=== PATIENT | female | born 1940 | race Caucasian/White ===

== ENCOUNTER → 2017-03-27 | Outpatient (CLI) | payer MEDICARE ==
[~2017-03-27] MED LIST: PEPT525S OR; PROBCAP14 PO; TURM450C PO; [UNRECOGNIZED DRUG - OTHER] PO; [UNRECOGNIZED DRUG - OTHER] PO; [UNRECOGNIZED DRUG - OTHER] PO; [UNRECOGNIZED DRUG - OTHER] PO
--- NOTE | 2017-03-27 15:15 | REP ---
Chest two views HISTORY: Leukemia Comparison: 07/24/2014 A large right pleural effusion is present. Underlying atelectasis or infiltrate cannot be excluded. The left lung is clear. The heart is normal in size. The pulmonary vasculature is normal in appearance. The bony structure is intact. IMPRESSION: Large right pleural effusion. Underlying atelectasis or infiltrate cannot be excluded. Signed by Tim Calix MD 03/27/2017 03:06 P
== END ==
LOC: M LRY 14:45
PROVIDERS: ATTEND Nurse Practitioner Family
DX: C91.10 Chronic lymphocytic leukemia of B-cell type not having achieved remission (principal); J90 Pleural effusion, not elsewhere classified

== ENCOUNTER 2017-03-28 15:53 | Emergency (ER) | payer MEDICARE ==
[~2017-03-28] VITALS: Ht 167.6 cm; Wt 60.5 kg
[~2017-03-28 15:53] MED LIST changes: -PROBCAP14 PO; -TURM450C PO
[2017-03-28 17:25] LABS: BASO # 0.1 10^3/uL (0.0-0.2); BASO % 1.2 % (0.0-1.0); EOS # 0.2 10^3/uL (0.0-0.50); EOS % 2.3 % (0.0-3.0); IMMATURE GRANULOCYTE % 0.2 % (0-0); LYMPH # 1.1 10^3/uL (1.5-4.5); LYMPH % 17.1 % (24.0-44.0); MEAN CORPUSCULAR HEMOGLOBIN 29.6 pg (27.0-33.0); MEAN CORPUSCULAR HGB CONC 32.5 g/dl (32.0-36.5); MEAN CORPUSCULAR VOLUME 90.9 fl (80.0-96.0); MONO # 0.5 10^3/uL (0.0-0.8); MONO % 8.1 % (0.0-5.0); NEUTROPHILS # 4.7 10^3/uL (1.8-7.7); NEUTROPHILS % 71.1 % (36.0-66.0); PLATELET COUNT, AUTOMATED 307 10^3/uL (150-450); RED CELL DISTRIBUTION WIDTH 11.5 % (11.5-14.5); WHITE BLOOD COUNT 6.7 10^3/uL (4.0-10.0)
[2017-03-28 17:44] LABS: ANION GAP 8 MEQ/L (8-16); BLOOD UREA NITROGEN 8 MG/DL (7-18); CALCIUM LEVEL 9.6 MG/DL (8.8-10.2); CARBON DIOXIDE LEVEL 28 MEQ/L (21-32); CHLORIDE LEVEL 102 MEQ/L (98-107); CREATININE FOR GFR 0.63 MG/DL (0.55-1.02); GLOMERULAR FILTRATION RATE > 60.0 (>39); GLUCOSE, FASTING 101 MG/DL (83-110); POTASSIUM SERUM 4.3 MEQ/L (3.5-5.1); SODIUM LEVEL 138 MEQ/L (136-145)
--- NOTE | 2017-03-28 18:23 | REP ---
CT study of the chest without contrast: History: Pleural effusion. Comparison study March 25, 2016. Comparison is made with chest x-ray from March 27, 2017 showing a large right pleural effusion. CT findings: Noncontrast CT study confirms the presence of a large right pleural effusion. There are somewhat irregular air bronchograms in the right lower lobe with the bronchial narrowing at the bifurcation of the right lower lobe bronchus. No obvious mass effect is seen. This is of uncertain significance. There is also endobronchial narrowing involving the air bronchograms in the right middle lobe where there is some atelectasis medially. There is a 1.5 cm peripheral pleural-based density in the area right upper lobe anteriorly. Also noted in the 0.8 cm right upper lobe nodule and a 0.6 cm nodule. These are posteriorly adjacent to the pleural effusion. There is a 0.4 cm noncalcified nodule in the left upper lobe. In the left apex there is a ground-glass opacity which measures 17 mm in greatest diameter. This it is slightly larger than it was March 25, 2016, 13 mm. Adjacent to this is a stable 3 mm noncalcified nodule. No adrenal lesion is seen. Multiple stable low density cysts are seen in the liver. Gallstones are visible in the dependent portion the gallbladder as before. No bony destructive lesion is appreciated. Impression: New large right pleural effusion. Multiple right lung pulmonary nodules. Some focal bronchial narrowing in the right middle lobe and right lower lobe bronchi question peribronchial mass effect. There are new right upper lobe pulmonary nodules and a new left upper lobe pulmonary nodule is seen. There is also a somewhat suspicious 17 mm ground-glass opacity in the left upper lobe. These findings are suspicious for bronchogenic malignancy. Cholelithiasis is also noted along with small liver cysts. Signed by Jean Carlos Santoyo MD 03/28/2017 07:24 P
--- NOTE | 2017-03-28 19:36 | RO ---
DATE OF PROCEDURE: 03/28/2017 PREPROCEDURE DIAGNOSIS: Right pleural effusion. POSTPROCEDURE DIAGNOSIS: Right pleural effusion. PROCEDURE: Right ultrasound-guided thoracentesis. SURGEON: Dr. Faisal Chairez LOGGING CONTRACTOR: None. ANESTHESIA: 20 mL of subcutaneous lidocaine. CONSENT: Written obtained and placed in the chart. The patient was counseled on the risks and benefits of the procedure. She understood that the risks included bleeding, pneumothorax, cough, chest pressure, infection and increased shortness of breath or increased need for oxygen therapy. DESCRIPTION OF PROCEDURE: After time-out was performed, identifying the patient with correct site, correct procedure, with two patient identifiers, the patient was placed in the sitting position. The right posterior thorax was ultrasounded and the largest fluid collection was marked. This was then prepped and draped with chlorhexidine and a sterile drape. Sterile precautions were used. 1% lidocaine was then introduced subcutaneously down to the level of the pleura with return of yellow fluid. A sandie in the skin was made over this site. The Arrow trocar was then advanced over the rib into the pleural space with return of yellow to orange fluid. The catheter was advanced over the trocar and the trocar was removed. A total of 2060 mL were removed. The procedure was stopped due to patient having chest discomfort. The patient also had some minimal coughing. There was more fluid to be obtained. The catheter was then removed under exhalation. A Band-Aid was placed over the site. There were no observed complications. Postprocedure chest x-ray is pending. Addendum: Post procedure chest x-ray showed improvement in the right pleural effusion with expansion of the lung. MTDD
[2017-03-28 19:40] VITALS: BP 151/76
--- NOTE | 2017-03-28 19:57 | REP ---
Sitting portable chest x-ray: Single view. History: Status post thoracentesis. Comparison study is from the previous day. Findings: The previously noted large right pleural effusion is improved. There is still some atelectasis in the right lower lobe of the lung and blunting of the right lateral pleural angle is seen. Left lung remains clear. Heart size is somewhat enlarged. but unchanged. No pneumothorax is seen. Impression: Improved right pleural effusion. No pneumothorax seen. Signed by Jean Carlos Santoyo MD 03/29/2017 02:11 P
--- NOTE | 2017-03-28 19:59 | ER ---
DATE OF CONSULTATION: 03/28/2017 REQUESTING PROVIDER: Dr. Gambino REASON FOR CONSULTATION: Right pleural effusion. HISTORY OF PRESENT ILLNESS: Lorenza is a 76-year-old female with known advanced [id number] lung cancer. She was told that she had a stage IV disease which she describes as having pleural involvement. She states she was diagnosed June 2016 and was told that she had a year and therefore she decided not to pursue any further oncologic treatment. Prior to this, she was set up for resection. Upon thoracoscopic view there was studding of the pleura and therefore no further surgery was performed. It is not clear if she has any extra pulmonary manifestations of her malignancy other than pleural studding. The patient noticed approximately 03/18/2017, she started developing increasing shortness of breath while she was at work. She has had no chest trauma. She has no history of pulmonary embolism but describes having a right arm thrombus when she had a PICC line and was on anticoagulation at that point in time. This was while she was being treated for chronic lymphocytic leukemia. She has not been on any anticoagulation for years. She has a nonproductive cough. No fever, chills. She has had as 12 pound weight loss since June of this past year. She has no headache, change in vision. No pleurisy. She has orthopnea. No anginal symptoms. No prior history of coronary artery disease. No lower extremity edema, calf pain. She has had decrease in her appetite but no nausea, vomiting or change in bowel habits. No blood in her stool. She has been followed in [place], first initially for CLL and then was diagnosed with a [id number] cancer. I am not sure which type or whether genetic studies have been performed , if it is adenocarcinoma or squamous. I will request records from [place] from Dr. zAar at [facility]. PAST MEDICAL HISTORY: 1. Non-small cell lung cancer, reportedly advanced stage with pleural studding on thoracoscopic view. 2. History of CLL status post chemotherapy. 3. History of tobacco dependence. 4. 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 SOCIAL HISTORY: The patient quit smoking 12 years ago, started smoking at age 14, smoked approximately a pack a day, therefore estimated 50 pack-year history. No other inhalational exposures. No illicit drug use. No alcohol use. She lives alone currently. She works at [employer]. She does not recall no other occupational exposures. No pets, no birds in her home. Family History: she believes that her sister may have had a rare thyroid cancer. Her other sister had lung cancer and was a smoker. Her father had prostate cancer and her mother at age 91 with Alzheimer's disease. REVIEW OF SYSTEMS: CONSTITUTIONAL: Positive weight loss as mentioned above. No fever, chills, night sweats. HEENT: No difficulty swallowing. No change in vision, epistaxis or dental abscess. No history of thrush. CARDIAC: Positive orthopnea. No PND, angina or symptoms of claudication. PULMONARY: No history of tuberculosis or tuberculosis contacts, no history of pleurisy. Otherwise as mentioned in history of present illness (HPI). GASTROINTESTINAL (GI): No nausea, vomiting, diarrhea. She has had decrease in her appetite. No constipation, blood in stool. GENITOURINARY (): No burning or pain with urination. No frequent urination. No hematuria or history of nephrolithiasis. NEUROLOGIC: No unilateral weakness. No history of seizure, stroke or head trauma. PSYCHIATRIC: No depression, anxiety. or suicidal ideation. SLEEP: No history of obstructive sleep apnea, snoring, or witnessed apneas. ALLERGY/IMMUNOLOGY: No history of frequent infections. No history of environmental allergies. MUSCULOSKELETAL: No bony pain. No hip pain. No recent fractures. No joint effusion. SKIN: No rash, jaundice or bruising. No pruritus. PHYSICAL EXAMINATION: Temperature is 98.7, pulse 79, respiratory rate is 16, blood pressure ranged from 143/82 to 170s over high 80s diastolic. Oxygen saturation 94% on room air, 97% on 2 liters. GENERAL: The patient is awake, alert and oriented. Affect and mood are appropriate. Nutrition and hygiene are good. Appears slightly nervous but speech is clear, non-tangential. HEENT: Sclerae clear and anicteric. Pupils equal, react to light. Mucous membranes are moist without lesions. Tongue is midline. Mallampati 1 with dentition in good repair. NECK: Supple. No tracheal deviation, no thyromegaly. LYMPHATICS: No cervical or supraclavicular axillary adenopathy. CARDIAC: Regular S1, S2, without audible murmur, rub or gallop. No elevated JVP. No peripheral edema. Peripheral pulses are palpable at radial locations and symmetric. PULMONARY: Decreased breath sounds on the right base approximately two-thirds of her posterior lung field. This area is dull to percussion. The left lung is clear. Anteriorly lung sounds are clear. There is no prolongation of the expiratory phase. No rhonchi or rales or wheeze. ABDOMEN: Soft, nontender, nondistended. No discernible hepatosplenomegaly. No masses or hernia. EXTREMITIES: No cyanosis, clubbing or edema. SKIN: No rashes, jaundice or bruising. Skin is fairly pale. MUSCULOSKELETAL: Fairly normal muscle tone. No obvious fracture or bony pain. NEUROLOGIC: No unilateral weakness. No tremor. No asterixis. LABORATORY EVALUATION: Shows a sodium of 138, potassium 4.3, chloride 102, bicarbonate 28, BUN of 8, creatinine of 0.63 with a fasting glucose of 101, calcium of 9.6, white blood cell count is 6.7 with a hemoglobin of 13.4, hematocrit of 41.2, platelet count of 307 with a neutrophilia of 71%. Chest CT was reviewed showing a large right pleural effusion. Multiple bilateral pulmonary nodules with what appears to be a large mass in the right lower lobe with consolidated atelectatic right lower lobe. There is a minimal pericardial effusion. Minimal aortic calcifications. The adrenal lesion on the left appears slightly enlarged. There is enlarged pretracheal node and subcarinal node. Liver appears slightly enlarged without lesion. There is some trachealomegaly. No significant parenchymal changes on the left side other than the few scattered nodules predominantly in the left upper lobe. EKG shows sinus rhythm, short IN interval, overall decreased QRS voltage. QTc is 401. No evidence of ST abnormalities. IMPRESSION: 1. Dyspnea from right large pleural effusion with orthopnea. The patient is symptomatic although has a history of extensive malignancy that I do not have detailed records of, I believe thoracentesis would be the most appropriate procedure at this point in time, both for diagnostic purposes but mostly for therapeutic reasons. I will repeat a chest x-ray after thoracentesis to see if the lung re-expands. If the lung does reinflate she could be a candidate for a PleurX catheter. Will follow her as an outpatient for this. If the lung remains trapped, it is unlikely there is much we can do other than symptomatic thoracentesis on a as needed basis. 2. Non-small cell lung cancer. I am unsure of her exact diagnosis and whether or not genetic studies have been performed if she has adenocarcinoma. I will therefore request records to ensure that she is not a candidate for immunotherapy. 3. Hypoxia. Improved with drainage. Would recommend ambulating the patient before discharge from the emergency room. 4. I do not feel that antibiotics are indicated at this point in time. She has no white count, no fever. Would continue to monitor. This is likely a pleural effusion from malignancy. JUNED
[2017-03-28 20:15] LABS: LDH, BODY FLUID 442 U/L (NOT ESTABLISHED); TOTAL PROTEIN, BODY FLUID 5.2 G/DL (NOT ESTABLISHED)
[2017-03-28 20:42] LABS: BF MONONUCLEAR CELL % 92.8 % (0-0); BF POLYMORPHONUCLEAR CELL % 7.2 CELLS/uL (0-0)
[2017-03-28 20:44] LABS: BF DIFF IF INDICATED? YES (NO)
--- NOTE | 2017-03-31 06:06 | ECGEPIP ---
Stationary ECG Study [facility] - ED Test Date: 2017-03-28 Pat Name: DONA MCCLAIN Department: Room: - Gender: F Clinical Services Specialist: SHEFALI : 1940 Requested By: Deb Lopez Order Number: [id number] Reading MD: Herb Walsh Measurements Intervals Earth Rate: 71 P: 41 HI: 111 QRS: 44 QRSD: 83 T: 35 QT: 378 QTc: 413 Interpretive Statements SINUS RHYTHM WITH SHORT HI INTERVAL SIMILAR TO 07/24/14 Electronically Signed On 03-31-2017 6:06:08 EDT by Herb Walsh
[2017-04-18] MEDS ORDERED: TURM450C PO (16:20)
[2017-04-18] MEDS ORDERED: PROBCAP14 PO (16:20)
== END 2017-03-28 19:52 | disposition home or self-care (01) ==
LOC: M ED 15:53
DX: J90 Pleural effusion, not elsewhere classified (principal); C34.00 Malignant neoplasm of unspecified main bronchus; C91.10 Chronic lymphocytic leukemia of B-cell type not having achieved remission; E78.5 Hyperlipidemia, unspecified; F41.9 Anxiety disorder, unspecified; F32.9 Major depressive disorder, single episode, unspecified; Z87.891 Personal history of nicotine dependence; Z88.0 Allergy status to penicillin; Z79.899 Other long term (current) drug therapy

== ENCOUNTER → 2017-04-08 | Outpatient (CLI) | payer MEDICARE ==
[~2017-04-08] MED LIST changes: +PROBCAP14 PO; +TURM450C PO
--- NOTE | 2017-04-08 15:45 | REP ---
PA and lateral chest: Comparisons are the PA and lateral chest of 03/27/[address] of 03/28 2017. There is a large right pleural effusion, slightly decreased in size from the prior studies. The right upper lobe is clear. The left lung is clear. Cardiac size cannot be assessed. The salud, mediastinum, bony thorax unremarkable. Impression: Persisting large right pleural effusion as described. Signed by Ramakrishna Sorensen MD 04/08/2017 03:36 P
== END ==
LOC: M LRY 12:53
PROVIDERS: ATTEND Internal Medicine Pulmonary Disease
DX: J90 Pleural effusion, not elsewhere classified (principal)

== ENCOUNTER → 2017-04-28 | Outpatient (CLI) | payer MEDICARE ==
--- NOTE | 2017-04-28 09:27 | REP ---
Clinical: Follow-up malignant pleural effusion. Technique: PA and lateral. Comparison: 04/19/2017. Findings: Right mid to lower lobe ill-defined pleuroparenchymal changes are again identified and appear relatively similar to prior examination. Small to moderate right pleural effusion may be mildly improved when compared to prior examination and a small residual right apical pneumothorax may be slightly improved as well. Chest tubes the right base remain stable in position. Diffuse bilateral underlying chronic interstitial changes remain stable and the left hemithorax appears relatively clear. Visualized portions of the mediastinum and cardiac silhouette are within normal limits and unchanged. Skeletal structures intact. Impression: Right-sided pleuroparenchymal changes are similar to prior examination. Small to moderate right pleural effusion and associated pneumothorax may be slightly improved. Signed by Azar Stout MD 04/28/2017 09:18 A
== END ==
LOC: M SMT 08:27
PROVIDERS: ATTEND Thoracic Surgery (Cardiothoracic Vascular Surgery)
DX: C34.90 Malignant neoplasm of unspecified part of unspecified bronchus or lung (principal); J91.0 Malignant pleural effusion

== ENCOUNTER → 2017-05-12 | Outpatient (CLI) | payer MEDICARE ==
--- NOTE | 2017-05-12 09:36 | REP ---
Clinical: Malignant pleural effusion. Technique: PA and lateral. Comparison: 04/28/2017. Findings: Right-sided chest tube in stable position. Moderate increased right pleural fluid is identified in the right lung base as well as creating a right apical cap. Underlying ill-defined areas of opacity and interstitial changes remain relatively similar to prior examination. Left hemithorax demonstrates stable chronic interstitial changes without effusion or pneumothorax. Mediastinum and cardiac silhouette are stable and within normal limits. Impression: Increased right pleural fluid in the right lung base and apical regions. Signed by Azar Stout MD 05/12/2017 09:27 A
== END ==
LOC: M SMT 09:03
PROVIDERS: ATTEND Thoracic Surgery (Cardiothoracic Vascular Surgery)
DX: R91.8 Other nonspecific abnormal finding of lung field (principal); J91.0 Malignant pleural effusion